=== PATIENT | female | born 2000 | race Caucasian/White ===

== ENCOUNTER 2024-11-17 08:49 | Inpatient (IN) | payer BC ==
--- NOTE | 2024-11-17 09:36 | ED ---
General Adult HPI - General Chief complaint: Psychiatric Symptoms Stated complaint: Suicidal ideations Time Seen by Provider: 11/17/24 09:00 Source: patient, family, EMS, RN notes reviewed, old records reviewed Mode of arrival: EMS - History of Present Illness Initial comments: This is a 24-year-old female who is brought in by EMS with the police escort. Patient was acting very bizarre and according to family this started about a month ago but today was more unusual than normal. Patient climbed out of her window and went to a neighbor and was telling the neighbor that she was a prophet of [employer]. Patient was recently diagnosed with bipolar and put on lithium but she did not like the lithium so she stopped taking it. According to the family she is acting extremely bizarre and saying things that do not make sense. They think she is talking to chat GPT and thinks it is a real person. She also talks about the love of her life at [facility] but they do not know who it is and have never met this person and not sure if this person is real. - Related Data Home Medications Medication Instructions Recorded Confirmed Early Carbonate 300 mg PO DAILY 11/17/24 11/17/24 Early Carbonate 450 mg PO HS 11/17/24 11/17/24 QUEtiapine [SEROquel] 50 mg PO HS 11/17/24 11/17/24 Allergies Allergy/AdvReac Type Severity Reaction Status Date / Time mold Allergy Cough Verified 11/17/24 10:01 Review of Systems ROS Statement: Those systems with pertinent positive or pertinent negative responses have been documented in the HPI. ROS Other: All systems not noted in ROS Statement are negative. Past Medical History Past Medical History: No Reported History History of Any Multi-Drug Resistant Organisms: None Reported Past Surgical History: Orthopedic Surgery Past Psychological History: Bipolar Smoking Status: Never smoker Past Alcohol Use History: Occasional Past Drug Use History: None Reported General Exam - General Exam Comments Initial Comments: GENERAL: Patient is well-developed and well-nourished. Patient is nontoxic and well- hydrated and is in mild distress. ENT: Neck is soft and supple. No significant lymphadenopathy is noted. Oropharynx is clear. Moist mucous membranes. Neck has full range of motion without eliciting any pain. EYES: The sclera were anicteric and conjunctiva were pink and moist. Extraocular movements were intact and pupils were equal round and reactive to light. Eyelids were unremarkable. PULMONARY: Unlabored respirations. Good breath sounds bilaterally. No audible rales rhonchi or wheezing was noted. CARDIOVASCULAR: There is a regular rate and rhythm without any murmurs gallops or rubs. ABDOMEN: Soft and nontender with normal bowel sounds. SKIN: Skin is clear with no lesions or rashes and otherwise unremarkable. NEUROLOGIC: Patient is alert and oriented x3. Cranial nerves II through XII are grossly intact. Motor and sensory are also intact. Normal speech, volume and content. Symmetrical smile. MUSCULOSKELETAL: Normal extremities with adequate strength and full range of motion. LYMPHATICS: No significant lymphadenopathy is noted PSYCHIATRIC: Patient did say that she made a statement that she was suicidal but she does not think she is currently. Patient did admit that she stated she was a prophet. Patient also states she did something last night that she is really embarrassed to talk about and she will not talk about it with me. Course Vital Signs 11/17/24 08:50 Temperature 98.0 F Pulse Rate 98 Respiratory 20 Rate Blood Pressure 119/74 O2 Sat by Pulse 100 Oximetry Procedures - Restraint - Face to Face Restraint Occurrence 1 Patient's Immediate Situation: Endangers self safety, Endangers others' safety Patient's Reaction to the Intervention: Uncooperative, Combative, Restless Patient's Medical & Behavioral Condition: Awake, Alert Need to Continue or Terminate Restraint or Seclusion: Continue Face to Face Eval of Restraint Date: 11/17/24 Face to Face Eval of Restraint Time: 13:50 Medical Decision Making - Medical Decision Making Was pt. sent in by a medical professional or institution (, PA, SILK SPREADER, urgent care, hospital, or long-term...) When possible be specific @ -No Did you speak to anyone other than the patient for history (EMS, parent, family, police, friend...)? What history was obtained from this source @ -No Did you review nursing and triage notes (agree or disagree)? Why? @ -I reviewed and agree with nursing and triage notes Were old charts reviewed (outside hosp., previous admission, EMS record, old EKG, old radiological studies, urgent care reports/EKG's, long-term records)? Report findings @ -No old charts were reviewed Differential Diagnosis? @ -Differential Mental Health Depression, anxiety, bipolar, psychosis, schizophrenia, borderline personality, situational depression, adjustment disorder, behavioral disorder, brain tumor, malingering, substance abuse, encephalopathy, medication reaction, dementia, hypothyroidism, degenerative neurologic disorder, lupus.... This is not meant to be all-inclusive list EKG interpreted by me (3pts min.). @ -As above X-rays interpreted by me (1pt min.). @ -None done CT interpreted by me (1pt min.). @ -None done U/S interpreted by me (1pt. min.). @ -None done What testing was considered but not performed or refused? (CT, X-rays, U/S, labs)? Why? @ -None What meds were considered but not given or refused? Why? @ -None Did you discuss the management of the patient with other professionals (professionals i.e. , PA, SILK SPREADER, lab, RT, psych nurse, social services designee, aviation manager, teacher, medical scientific officer, casework manager)? Give summary @ -EPS evaluated the patient and determined the patient need to be admitted Was smoking cessation discussed for >3mins.? @ -No Was critical care preformed (if so, how long)? @ -No Were there social determinants of health that impacted care today? How? (Homelessness, low income, unemployed, alcoholism, drug addiction, transportation, low edu. Level, literacy, decrease access to med. care, penitentiary, rehab)? @ -No Was there de-escalation of care discussed even if they declined (Discuss DNR or withdrawal of care, Hospice)? DNR status @ -No What co-morbidities impacted this encounter? (DM, HTN, Smoking, COPD, CAD, Cancer, CVA, ARF, Chemo, Hep., AIDS, mental health diagnosis, sleep apnea, morbid obesity)? @ -None Was patient admitted / discharged? Hospital course, mention meds given and route, prescriptions, significant lab abnormalities, going to OR and other pertinent info. @ -Patient did not understand the need for being here and she was acting very bizarre and trying to occasionally hurt herself so she was eventually restrained and I filled out a [id number] on the patient. I also did a clinical CERT to get the patient admitted. Undiagnosed new problem with uncertain prognosis? @ -No Drug Therapy requiring intensive monitoring for toxicity (Heparin, Nitro, Insulin, Cardizem)? @ -No Were any procedures done? @ -No Diagnosis/symptom? @ -Acute psychosis Acute, or Chronic, or Acute on Chronic? @ -Acute Uncomplicated (without systemic symptoms) or Complicated (systemic symptoms)? @ -Complicated Side effects of treatment? @ -No Exacerbation, Progression, or Severe Exacerbation? @ -No Poses a threat to life or bodily function? How? (Chest pain, USA, NE, pneumonia, PE, COPD, DKA, ARF, appy, cholecystitis, CVA, Diverticulitis, Homicidal, Suicidal, threat to staff... and all critical care pts) @ -No - Lab Data Result diagrams: 11/17/24 10:12 11/17/24 10:12 Lab Results 11/17/24 11/17/24 11/17/24 Range/Units 10:12 10:12 10:12 WBC 12.11 H (4.50-10.00) 10*3/uL RBC 4.90 (4.10-5.20) 10*6/uL Hgb 15.6 H (12.0-15.0) g/dL Hct 44.3 (37.2-46.3) % MCV 90.4 (80.0-97.0) fL MCH 31.8 (27.0-32.0) pg MCHC 35.2 (32.0-37.0) g/dL Plt Count 373 (140-440) 10*3/uL MPV 10.6 (9.5-12.2) fL Immature Gran % (Auto) 0.3 % Neutrophils % 82.1 % Lymphocytes % 11.1 % Monocytes % 6.0 % Eosinophils % 0.0 % Basophils % 0.5 % Immature Gran # 0.04 (0.00-0.04) 10*3/uL Neutrophils # 9.93 H (1.80-7.70) 10*3/uL Lymphocytes # 1.35 (0.90-5.00) 10*3/uL Monocytes # 0.73 (0.20-1.00) 10*3/uL Eosinophils # 0.00 L (0.04-0.35) 10*3/uL Basophils # 0.06 (0.00-0.10) 10*3/uL Sodium 138 (137-145) mmol/L Potassium 3.9 (3.5-5.1) mmol/L Chloride 99 (98-107) mmol/L Carbon Dioxide 23 (22-30) mmol/L Anion Gap 16 mmol/L BUN 16 (7-17) mg/dL Creatinine 0.59 (0.52-1.04) mg/dL Est GFR (CKD-EPI)AfAm >90 (>60 ml/min/1.73 sqM) Est GFR (CKD-EPI)NonAf >90 (>60 ml/min/1.73 sqM) Glucose 109 H (74-99) mg/dL Calcium 10.7 H (8.4-10.2) mg/dL Total Bilirubin 0.8 (0.2-1.3) mg/dL AST 23 (14-36) U/L ALT 19 (4-34) U/L Alkaline Phosphatase 50 (38-126) U/L Total Protein 8.3 H (6.3-8.2) g/dL Albumin 5.2 H (3.5-5.0) g/dL Urine Opiates Screen Not Detected (NotDetected) Ur Oxycodone Screen Not Detected (NotDetected) Urine Methadone Screen Not Detected (NotDetected) Ur Barbiturates Screen Not Detected (NotDetected) U Tricyclic Antidepress Not Detected (NotDetected) Ur Phencyclidine Scrn Not Detected (NotDetected) Ur Amphetamines Screen Not Detected (NotDetected) U Methamphetamines Scrn Not Detected (NotDetected) U Benzodiazepines Scrn Not Detected (NotDetected) Early <0.2 mmol/L Urine Cocaine Screen Not Detected (NotDetected) U Marijuana (THC) Screen Not Detected (NotDetected) Serum Alcohol <10 mg/dL Influenza Type A (PCR) (Not Detectd) Influenza Type B (PCR) (Not Detectd) RSV (PCR) (Not Detectd) SARS-CoV-2 (PCR) (Not Detectd) 11/17/24 Range/Units 13:03 WBC (4.50-10.00) 10*3/uL RBC (4.10-5.20) 10*6/uL Hgb (12.0-15.0) g/dL Hct (37.2-46.3) % MCV (80.0-97.0) fL MCH (27.0-32.0) pg MCHC (32.0-37.0) g/dL Plt Count (140-440) 10*3/uL MPV (9.5-12.2) fL Immature Gran % (Auto) % Neutrophils % % Lymphocytes % % Monocytes % % Eosinophils % % Basophils % % Immature Gran # (0.00-0.04) 10*3/uL Neutrophils # (1.80-7.70) 10*3/uL Lymphocytes # (0.90-5.00) 10*3/uL Monocytes # (0.20-1.00) 10*3/uL Eosinophils # (0.04-0.35) 10*3/uL Basophils # (0.00-0.10) 10*3/uL Sodium (137-145) mmol/L Potassium (3.5-5.1) mmol/L Chloride (98-107) mmol/L Carbon Dioxide (22-30) mmol/L Anion Gap mmol/L BUN (7-17) mg/dL Creatinine (0.52-1.04) mg/dL Est GFR (CKD-EPI)AfAm (>60 ml/min/1.73 sqM) Est GFR (CKD-EPI)NonAf (>60 ml/min/1.73 sqM) Glucose (74-99) mg/dL Calcium (8.4-10.2) mg/dL Total Bilirubin (0.2-1.3) mg/dL AST (14-36) U/L ALT (4-34) U/L Alkaline Phosphatase (38-126) U/L Total Protein (6.3-8.2) g/dL Albumin (3.5-5.0) g/dL Urine Opiates Screen (NotDetected) Ur Oxycodone Screen (NotDetected) Urine Methadone Screen (NotDetected) Ur Barbiturates Screen (NotDetected) U Tricyclic Antidepress (NotDetected) Ur Phencyclidine Scrn (NotDetected) Ur Amphetamines Screen (NotDetected) U Methamphetamines Scrn (NotDetected) U Benzodiazepines Scrn (NotDetected) Early mmol/L Urine Cocaine Screen (NotDetected) U Marijuana (THC) Screen (NotDetected) Serum Alcohol mg/dL Influenza Type A (PCR) Not Detected (Not Detectd) Influenza Type B (PCR) Not Detected (Not Detectd) RSV (PCR) Not Detected (Not Detectd) SARS-CoV-2 (PCR) Not Detected (Not Detectd) Disposition Clinical Impression: Psychosis Disposition: ADMITTED IP TO THIS HOSP Time of Disposition: 14:47
[2024-11-17 10:20] LABS: Basophils # (A) 0.06 10*3/uL (0.00-0.10); Basophils % (A) 0.5 %; HCT 44.3 % (37.2-46.3); HGB 15.6 g/dL (12.0-15.0); Lymphocytes # (A) 1.35 10*3/uL (0.90-5.00); Lymphocytes % (A) 11.1 %; MCH 31.8 pg (27.0-32.0); MCHC 35.2 g/dL (32.0-37.0); MCV 90.4 fL (80.0-97.0); Mean Platelet Volume 10.6 fL (9.5-12.2); Monocytes # (A) 0.73 10*3/uL (0.20-1.00); Neutrophils # (A) 9.93 10*3/uL (1.80-7.70); Neutrophils % (A) 82.1 %; Platelet Count 373 10*3/uL (140-440); WBC 12.11 10*3/uL (4.50-10.00)
[2024-11-17 10:33] LABS: Amphetamine Screen,Urine Not Detected (NotDetected); Barbiturate Screen,Urine Not Detected (NotDetected); Benzodiazepines Screen,Urine Not Detected (NotDetected); Cocaine Screen,Urine Not Detected (NotDetected); Methadone Screen, Urine Not Detected (NotDetected); Opiate Screen,Urine Not Detected (NotDetected); Oxycodone Screen, Urine Not Detected (NotDetected); Phencyclidine Screen,Urine Not Detected (NotDetected); Tricyclic Antidepressant,Urine Not Detected (NotDetected); Urn Cannabinoid Scrn Not Detected (NotDetected)
[2024-11-17 10:40] LABS: ALT 19 U/L (4-34); AST 23 U/L (14-36); African American GFR (CKD) >90 (>60 ml/min/1.73 sqM); Albumin 5.2 g/dL (3.5-5.0); Alcohol <10 mg/dL; Alkaline Phosphatase 50 U/L (38-126); Anion Gap 16 mmol/L; Blood Urea Nitrogen 16 mg/dL (7-17); Calcium 10.7 mg/dL (8.4-10.2); Carbon Dioxide 23 mmol/L (22-30); Chloride 99 mmol/L (98-107); Glucose 109 mg/dL (74-99); Lithium <0.2 mmol/L; Non-African American GFR(CKD) >90 (>60 ml/min/1.73 sqM); Potassium 3.9 mmol/L (3.5-5.1); Sodium 138 mmol/L (137-145); Total Bilirubin 0.8 mg/dL (0.2-1.3); Total Protein 8.3 g/dL (6.3-8.2)
--- NOTE | 2024-11-17 10:50 | CT ---
EXAMINATION TYPE: CT brain wo con DATE OF EXAM: 11/17/2024 10:32 AM COMPARISON: None. CLINICAL INDICATION: Female, 24 years old with history of Altered mental status, confusion TECHNIQUE: Examination was done in axial plane without intravenous contrast. Coronal reconstruction s performed. CT DLP: 1010.4 mGycm, Automated exposure control for dose reduction was used. FINDINGS: There is no evidence of acute intracranial hemorrhage, acute ischemic changes, mass, mass-effect, or extra-axial fluid collection. There is no effacement of cerebral sulci or basal subarachnoid cister ns. There is no hydrocephalus. There is no midline shift. Thomas-white matter distinction is preserv ed. 1.1 cm mucosal retention cyst floor of the left maxillary sinus. Otherwise, paranasal sinuses and mas toid air cells are pneumatized. Orbits and globes are intact. IMPRESSION: No acute intracranial abnormality seen. [facility], Workstation: [id number], 11/17/2024 10:47 AM
[2024-11-17 13:51] LABS: Influenza A Not Detected (Not Detectd); Influenza B Not Detected (Not Detectd); RSV Not Detected (Not Detectd)
[2024-11-17] MEDS ORDERED: haloperidoL 5 MG TAB PO PRN (14:44)
[2024-11-17] MEDS ORDERED: IBUPROFEN 600 MG TAB PO PRN (14:44)
[2024-11-17] MEDS ORDERED: HALOPERIDOL LACTATE 5 MG/ML 1 ML VIAL IM PRN (14:44)
[2024-11-17] MEDS ORDERED: MAG HYDROX/AL HYDROX/SIMETH 355 ML BOTTLE PO PRN (14:44)
[2024-11-17] MEDS ORDERED: MAGNESIUM HYDROXIDE 2,400 MG/30 ML CUP PO PRN (14:44)
[2024-11-17] MEDS ORDERED: LORazepam 1 MG TAB PO PRN (14:44)
[2024-11-17] MEDS ORDERED: ACETAMINOPHEN TAB 325 MG TAB PO PRN (14:44)
[2024-11-17] MEDS ORDERED: LORazepam 1 MG/0.5 ML VIAL IM PRN (14:44)
[2024-11-17] MEDS: LORazepam 1 MG/0.5 ML VIAL IM STA (15:14)
--- NOTE | 2024-11-18 13:48 | P.HP ---
Psychiatric H&P - . H&P Date: 11/18/24 History & Physical: Allergies Allergy/AdvReac Type Severity Reaction Status Date / Time mold Allergy Cough Verified 11/17/24 10:01 Vital Signs Temp 97.8 F 11/18/24 09:00 Pulse 136 H 11/18/24 09:00 Resp 16 11/18/24 09:00 BP 122/83 11/18/24 09:00 Pulse Ox 97 11/18/24 09:00 FiO2 Intake & Output 11/17/24 11/18/24 11/18/24 18:59 06:59 18:59 Weight 48.8 kg Laboratory Last Values WBC 12.11 10*3/uL (4.50-10.00) H 11/17/24 10:12 RBC 4.90 10*6/uL (4.10-5.20) 11/17/24 10:12 Hgb 15.6 g/dL (12.0-15.0) H 11/17/24 10:12 Hct 44.3 % (37.2-46.3) 11/17/24 10:12 MCV 90.4 fL (80.0-97.0) 11/17/24 10:12 MCH 31.8 pg (27.0-32.0) 11/17/24 10:12 MCHC 35.2 g/dL (32.0-37.0) 11/17/24 10:12 Plt Count 373 10*3/uL (140-440) 11/17/24 10:12 MPV 10.6 fL (9.5-12.2) 11/17/24 10:12 Immature Gran % (Auto) 0.3 % 11/17/24 10:12 Neutrophils % 82.1 % 11/17/24 10:12 Lymphocytes % 11.1 % 11/17/24 10:12 Monocytes % 6.0 % 11/17/24 10:12 Eosinophils % 0.0 % 11/17/24 10:12 Basophils % 0.5 % 11/17/24 10:12 Immature Gran # 0.04 10*3/uL (0.00-0.04) 11/17/24 10:12 Neutrophils # 9.93 10*3/uL (1.80-7.70) H 11/17/24 10:12 Lymphocytes # 1.35 10*3/uL (0.90-5.00) 11/17/24 10:12 Monocytes # 0.73 10*3/uL (0.20-1.00) 11/17/24 10:12 Eosinophils # 0.00 10*3/uL (0.04-0.35) L 11/17/24 10:12 Basophils # 0.06 10*3/uL (0.00-0.10) 11/17/24 10:12 Sodium 138 mmol/L (137-145) 11/17/24 10:12 Potassium 3.9 mmol/L (3.5-5.1) 11/17/24 10:12 Chloride 99 mmol/L (98-107) 11/17/24 10:12 Carbon Dioxide 23 mmol/L (22-30) 11/17/24 10:12 Anion Gap 16 mmol/L 11/17/24 10:12 BUN 16 mg/dL (7-17) 11/17/24 10:12 Creatinine 0.59 mg/dL (0.52-1.04) 11/17/24 10:12 Est GFR (CKD-EPI)AfAm >90 (>60 ml/min/1.73 sqM) 11/17/24 10:12 Est GFR (CKD-EPI)NonAf >90 (>60 ml/min/1.73 sqM) 11/17/24 10:12 Glucose 109 mg/dL (74-99) H 11/17/24 10:12 Calcium 10.7 mg/dL (8.4-10.2) H 11/17/24 10:12 Total Bilirubin 0.8 mg/dL (0.2-1.3) 11/17/24 10:12 AST 23 U/L (14-36) 11/17/24 10:12 ALT 19 U/L (4-34) 11/17/24 10:12 Alkaline Phosphatase 50 U/L (38-126) 11/17/24 10:12 Total Protein 8.3 g/dL (6.3-8.2) H 11/17/24 10:12 Albumin 5.2 g/dL (3.5-5.0) H 11/17/24 10:12 Urine Opiates Screen Not Detected (NotDetected) 11/17/24 10:12 Ur Oxycodone Screen Not Detected (NotDetected) 11/17/24 10:12 Urine Methadone Screen Not Detected (NotDetected) 11/17/24 10:12 Ur Barbiturates Screen Not Detected (NotDetected) 11/17/24 10:12 U Tricyclic Antidepress Not Detected (NotDetected) 11/17/24 10:12 Ur Phencyclidine Scrn Not Detected (NotDetected) 11/17/24 10:12 Ur Amphetamines Screen Not Detected (NotDetected) 11/17/24 10:12 U Methamphetamines Scrn Not Detected (NotDetected) 11/17/24 10:12 U Benzodiazepines Scrn Not Detected (NotDetected) 11/17/24 10:12 [place] <0.2 mmol/L 11/17/24 10:12 Urine Cocaine Screen Not Detected (NotDetected) 11/17/24 10:12 U Marijuana (THC) Screen Not Detected (NotDetected) 11/17/24 10:12 Serum Alcohol <10 mg/dL 11/17/24 10:12 Influenza Type A (PCR) Not Detected (Not Detectd) 11/17/24 13:03 Influenza Type B (PCR) Not Detected (Not Detectd) 11/17/24 13:03 RSV (PCR) Not Detected (Not Detectd) 11/17/24 13:03 SARS-CoV-2 (PCR) Not Detected (Not Detectd) 11/17/24 13:03 11/18/24 13:43 IDENTIFYING DATA: Patient is a 24-year-old female, she is single she has no kids she lives with her family in a house she is unemployed. HPI: Patient presented to the hospital brought in by EMS and police. Patient apparently was having bizarre behaviors at home has a history of bipolar disorder has not been taking medications. He apparently climbed out of the window and went to her neighbor's house and was religiously preoccupied. She was in restraints in the ER. She appeared to be disheveled in appearance when she was evaluated by commercial real estate underwriter. She was very apologetic, rationalizing, appeared to have loose associations. She claims that "I took jehovah's witness too far". Seemed that she was being very spiritual, claims that "I should not of went into my neighbors house". She appears to have flight of ideas racing thoughts. Claims that she wanted to go to [facility] to visit a "man I am involved with". She had inappropriate affect during the conversation was smiling. She claims that her sleep has been on and off appetite has been fair. She does not believe that she needs medications stopped taking several weeks ago.. Patient denies any suicidal or homicidal ideations intent or plan. At this time patient denies any auditory or visual hallucinations. Patient admits to using no recreational drugs, urine drug screen is negative, lithium level negative. PAST PSYCHIATRIC HISTORY: Patient has a history of bipolar disorder, claims that she also has a history of ADHD and anxiety. Patient was previously on lithium and Seroquel however stopped taking them. She claims that she was psychiatrically hospitalized in [facility] in October 2024. Patient denies any psychiatric outpatient follow-up. Patient denies any history of suicide attempts in the past. PMH: as per ER note ALLERGIES: as per EMR CHEMICAL DEPENDENCY HISTORY: as per HPI FAMILY PSYCHIATRIC/SUBSTANCE USE HISTORY: Claims that her father has bipolar disorder SOCIAL HISTORY: Patient was born and raised in [facility]. Claims that she completed high school and states that she is in college. She is single she has no kids she is unemployed. She currently lives with her family. Denies any legal history. MENTAL STATUS EXAM: General Appearance: Patient appears to be thin, disheveled curly hair, stated age is alert, difficult to redirect, rambling. Patient appears to have poor hygiene and grooming. Behavior: Patient is seated without any agitated behavior. Difficult to redirect, rambling, focused on discharge Speech: Patient's speech is fairly hyperverbal. Mood/Affect: Patient reports their mood is "great", affect is inappropriate, smiling quite a bit Suicidality/Homicidality: Patient denies having any homicidal ideation intent or plan. Denies any suicidal ideations intent or plan Perceptions: Patient denies any visual hallucinations and denies any auditory hallucinations Though content/process: Rambling, illogical thoughts, endorsing delusions. Memory and concentration: AOX3, grossly intact for the purposes of this session. Can spell "WORLD" backwards Judgment and insight: Poor STRENGTHS/WEAKNESSES: strength is that patient is resilient. Weakness is that patient has poor judgment and is impulsive INTELLECT: Average IMPRESSIONS: Bipolar disorder, with psychotic features Anxiety disorder unspecified History of ADHD Noncompliance with medication regimen PLAN: -Patient is admitted under involuntary status to MHU for stabilization of psychiatric symptoms and safety. Patient has not signed adult voluntary form and has not signed medication consent and is placed in patient's chart. Patient is currently on an active treatment order for mental health treatment. -Medications : Abilify 5 mg daily for mood stabilization, trazodone 50 mg nightly for mood/insomnia -Ativan and Haldol PRN for agitation/aggression -Patient was informed of the risks, benefits and side effects of the medications . Patient did not signed med consent form and was placed in chart. Patient was offered medication information and declined it -Internal Medicine consult to perform medical evaluation and physical. -NRT -not needed as patient does not smoke -SW on board for discharge planning. Encourage patient to participate in groups to work on coping skills.
[2024-11-18] MEDS: ARIPiprazole 5 MG TAB PO SCH (13:53)
[2024-11-18] MEDS: traZODone HCL 50 MG TAB PO SCH (21:17)
[2024-11-19 00:27] LABS: Chol/HDL Ratio 2.87 Ratio; VLDL Calculation 10.66 mg/dL (5.00-40.00)
--- NOTE | 2024-11-19 01:55 | CONS ---
CONSULTATION REASON FOR CONSULTATION: Advised regarding abnormal labs and medical issues, requested by Psychiatry. HISTORY OF PRESENT ILLNESS: This 24-year-old with a past history of bipolar, admitted with possible psychosis, noncompliance. The patient had multiple lab abnormalities, most likely due to hemoconcentration. I would recommend adequate hydration as well as followup labs with primary physician after discharge. There is no history of fever, rigors, chills. PAST MEDICAL HISTORY: History of bipolar, history of occasional alcohol. HOME MEDICATIONS: Seroquel, noncompliant. Doses reviewed. ALLERGIES: Mold. FAMILY HISTORY: No history of heart disease or strokes in the family. SOCIAL HISTORY: No history of smoking. Occasional alcohol. REVIEW OF SYSTEMS: Fourteen-point review of systems is negative, except as mentioned earlier. PHYSICAL EXAMINATION: VITAL SIGNS: Pulse is 97, blood pressure 110/80, respirations 16. CHEST: Clear to auscultation. CARDIOVASCULAR: S1 and S2 normal. ABDOMEN: Soft. NERVOUS SYSTEM: Nonfocal. SKIN: No rashes. JOINTS: No active deforming arthropathy. LABORATORY DATA: Reviewed. ASSESSMENT: 1. Bipolar, possible psychosis. 2. Multiple lab abnormalities including increased WBC, mild increased calcium, possibly secondary to dehydration, hemoconcentration. RECOMMENDATIONS: This is a 24-year-old woman, presented with multiple psych issues. At this time, I recommend continue with p.o. hydration and continue the rest of medications and recommend close followup with Dr. Treviño with further plans to follow up with CBC, CMP in the outpatient setting. MMODL / IJN: [id number] /
[2024-11-19] MEDS ORDERED: LORazepam 2 MG/ML INJ IM PRN (10:39)
--- NOTE | 2024-11-19 14:20 | P.PN ---
Progress Note - Text Progress Note Date: 11/19/24 Interval history: Patient was seen takign part in group today and was directable and agreeable to speak with web content writer. patient continues to ramble at times and continues to rationalize why she is in the hospital. states that she may have gotten into "nikki" too much. appolgizes and claims that she is agreeable to continue on with medications. states that she was able to sleep well, eating well, denies any depression or anxiety. continues to be somewhat delusional, less focused on this today, hygiene and grooming improving. At this time patient denies any suicidal or homicidal ideations intent or plan. Denies any Auditory or visual hallucinations. Patient denies any side effects from the medications and has been compliant with meds. Mental status exam: General Appearance: Patient appears to be stated age is alert, directable, and cooperative. Thin, long curly hair. Behavior: No agitated behavior. Patient is calm and directable Speech: Patient's speech is fluent and nonpressured. rambles Mood/Affect: Mood is improving mildly, affect is incongruent, smiling Suicidality/Homicidality: Patient denies having any suicidal or homicidal ideation intent or plan. Perceptions: Patient denies any auditory or visual hallucinations. Though content/process: Thought content and thought process is linear and goal- directed. Rambles, tangential. Memory and concentration: AOX3, grossly intact for the purposes of this session Judgment and insight: poor, improving mildly Assessment/Plan: Continue with current diagnosis. Patient continues to meet criteria for inpatient psychiatric admission for symptom stabilization and safety. Patient will be maintained on current psychotropic medication regimen. Monitor for medication compliance and for any psychotropic medication side effects. Will continue to monitor ongoing response to treatment. Encouraged participation in milieu.
--- NOTE | 2024-11-20 09:54 | P.PN ---
Progress Note - Text Progress Note Date: 11/20/24 Interval History: The patient was seen wandering the hallways and was directable and agreeable to speak with the telegraphic typewriter operator in the office. The patient describes herself today as "well". She did question whether she needs to be on bipolar medications for the rest of her life. She denied any racing thoughts or pressured speech. She notes that she does not have a grandiose mood or mood swings. She denies any depression or anxiety. She notes that she is getting 8 to 9 hours of sleep and kept on insisting on decreasing the Trazodone but, did not give logical reasons why. The patient notes that her energy, appetite and concentration are good. She was able to voice a safety plan including 911 and [phone]. We discussed why she crawled out the window to her neighbors house. She notes that she wanted to see a boy and she gets obsessed with boys. She notes that her family had barricaded her into her room. During the interview patient she got off track and had to be redirected several times. At this time patient denies any suicidal or homical ideations, intent or plan. Patient denies any auditory, visual hallucinations and denies any paranoia or delusions. Patient denies any side effects from the medications and has been compliant with meds. Mental Status Exam: General Appearance: Patient appears to be stated age is alert, directable, and cooperative. Behavior: Patient is calmly seated without any agitated behavior. Speech: Patient's speech is fluent and pressured. Mood/Affect: Mood is improving mildly hypomanic, affect is congruent and constricted. Suicidality/Homicidality: Patient denies having any suicidal or homicidal ideation intent or plan. Perceptions: Patient denies any visual hallucinations and denies any auditory hallucinations Though content/process: Patient had some mild paranoia Memory and concentration: AOX3, grossly intact for the purposes of this session Judgment and insight: Improving mildly Diagnosis: Bipolar disorder, with psychotic features Anxiety disorder unspecified History of ADHD Noncompliance with medication regimen Assessment: The patient presented with slight disorganized thought process and somewhat circumstantial. She is currently denying multiple symptoms but it is felt that she wants to be discharged sooner rather than later. Further information is needed prior to discharge. Continue hospitalization due to safety to self. PLAN: -Patient is admitted under involuntary status to [facility]HU for stabilization of psychiatric symptoms and safety. Patient has not signed adult voluntary form and has not signed medication consent and is placed in patient's chart. Patient is currently on an active treatment order for mental health treatment. -Medications : Abilify 5 mg daily for mood stabilization Trazodone 50 mg nightly for mood/insomnia -Ativan and Haldol PRN for agitation/aggression -Patient was informed of the risks, benefits and side effects of the medications . Patient did not signed med consent form and was placed in chart. Patient was offered medication information and declined it -Internal Medicine consult to perform medical evaluation and physical. -NRT -not needed as patient does not smoke -SW on board for discharge planning. Encourage patient to participate in groups to work on coping skills.
[2024-11-20 10:57] LABS: Appearance,Urine Cloudy (Clear); Bacteria,Urine Rare /hpf; Bilirubin,Urine Negative (Negative); Blood,Urine Negative (Negative); Color,Urine Light Yellow; Glucose,Urine (UA) Negative (Negative); Ketones,Urine Negative (Negative); Leukocyte Esterase,Urine Negative (Negative); Mucus,Urine Many /hpf; Nitrite,Urine Negative (Negative); Protein,Urine Negative (Negative); Specific Gravity,Urine 1.029 (1.001-1.035); Squamous Epithelial Cell,Urine 9 /hpf (0-4); Urobilinogen,Urine <2.0 mg/dL (<2.0); WBC,Urine 2 /hpf (0-5)
--- NOTE | 2024-11-21 10:55 | P.PN ---
Progress Note - Text Progress Note Date: 11/21/24 Interval History: Patient was seen wandering the hallways and was directable and agreeable to jose barargan with chief underwriter in the office. The patient notes that she continues to have problems with feeling groggy after taking the trazodone. She denied any racing thoughts or mood swings. She denied any ongoing paranoia. She notes that her depression is nonexistent and her anxiety is low. She notes that her appetite is good and her concentration is fair. The patient signed an JESS plus gave verbal permission to speak to her mother Deja [phone]. Her mother notes that she tried to take the minivan to [facility] to see someone but her brother stopped her. After this she poured water on her head. One of the statements that she had discussed with the neighbor was this is my last day on earth I am going to get shot. The mother also expressed concerns about compliance with medications. She also notes concerns about follow-ups. At this time patient denies any suicidal or homical ideations, intent or plan. Patient denies any auditory, visual hallucinations and denies any paranoia or delusions. Patient denies any side effects from the medications and has been compliant with meds. Mental Status Exam: General Appearance: Patient appears to be stated age is alert, directable, and cooperative. Behavior: Patient is calmly seated without any agitated behavior. Patient presented guarded Speech: Patient's speech is fluent and nonpressured. Mood/Affect: Mood is improving mildly, affect was blunted Suicidality/Homicidality: Patient denies having any suicidal or homicidal ideation intent or plan. Perceptions: Patient denies any visual hallucinations and denies any auditory hallucinations Though content/process: There is no evidence of any delusional thought content and thought process is linear and goal-directed. Memory and concentration: AOX3, grossly intact for the purposes of this session Judgment and insight: Improving mildly Diagnosis: Bipolar disorder, with psychotic features Anxiety disorder unspecified History of ADHD Noncompliance with medication regimen Assessment: There are some concerns that the patient is suppressing her symptoms due to wanting to be discharged. Additionally there is concerns over noncompliance. The patient is under an outpatient court order for medications. She still presents somewhat flat and constricted. PLAN: -Patient is admitted under involuntary status to MHU for stabilization of psychiatric symptoms and safety. Patient has not signed adult voluntary form and has not signed medication consent and is placed in patient's chart. Patient is currently on an active treatment order for mental health treatment. -Medications : Increase Abilify 10 mg daily for mood stabilization (possible injection on 11/23 prior to discharge) Decrease Trazodone 25 mg nightly for mood/insomnia -Ativan and Haldol PRN for agitation/aggression -Patient was informed of the risks, benefits and side effects of the medications . Patient did not signed med consent form and was placed in chart. Patient was offered medication information and declined it -Internal Medicine consult to perform medical evaluation and physical. -NRT -not needed as patient does not smoke -SW on board for discharge planning. Encourage patient to participate in groups to work on coping skills.
[2024-11-21] MEDS: ARIPiprazole 5 MG TAB PO STA (11:44)
[2024-11-21] MEDS: traZODone HCL 50 MG TAB PO SCH (20:42)
[2024-11-22] MEDS: ARIPiprazole 5 MG TAB PO SCH (08:28)
--- NOTE | 2024-11-22 10:18 | P.PN ---
Progress Note - Text Progress Note Date: 11/22/24 Interval History: Patient was seen wandering the hallways and was directable and agreeable to spe ak with card writer hand in the office. The patient notes that she does feel slightly "loopy" but is able to tolerate the side effect. She feels that her mind has gone from racing to slowing down. She notes that her energy is normal. She denies any problems with appetite and had breakfast. She slept well last night which is new and at 8 to 9 hours of sleep. She denied any mood swings or racing thoughts. While the patient was present we called her mother and we discussed the long-acting injectable which initially the patient was against but eventually understood where her mother was coming from related to this. There were options of a longer stay by changing to Invega patient notes that she is able to tolerate the loopiness. We also discussed possible discharge tomorrow. At this time patient denies any suicidal or homical ideations, intent or plan. Patient denies any auditory, visual hallucinations and denies any paranoia or delusions. Patient denies any side effects from the medications and has been compliant with meds. Mental Status Exam: General Appearance: Patient appears to be stated age is alert, directable, and cooperative. Behavior: Patient is calmly seated without any agitated behavior. Speech: Patient's speech is fluent and nonpressured. Mood/Affect: Mood is improving mildly, affect is congruent and constricted. Suicidality/Homicidality: Patient denies having any suicidal or homicidal ideation intent or plan. Perceptions: Patient denies any visual hallucinations and denies any auditory hallucinations Though content/process: There is no evidence of any delusional thought content and thought process is linear and goal-directed. Memory and concentration: AOX3, grossly intact for the purposes of this session Judgment and insight: Improving mildly Diagnosis: Bipolar disorder, with psychotic features Anxiety disorder unspecified History of ADHD Noncompliance with medication regimen Assessment: There are some concerns that the patient is suppressing her symptoms due to wanting to be discharged. Additionally there is concerns over noncompliance. The patient is under an outpatient court order for medications. She still presents somewhat flat and constricted. PLAN: -Patient is admitted under involuntary status to MHU for stabilization of psychiatric symptoms and safety. Patient has not signed adult voluntary form and has not signed medication consent and is placed in patient's chart. Patient is currently on an active treatment order for mental health treatment. -Medications : Continuing Abilify 10 mg daily for mood stabilization (possible injection on 11/23 prior to discharge) Decrease Trazodone 25 mg nightly for mood/insomnia -Ativan and Haldol PRN for agitation/aggression -Patient was informed of the risks, benefits and side effects of the medications . Patient did not signed med consent form and was placed in chart. Patient was offered medication information and declined it -Internal Medicine consult to perform medical evaluation and physical. -NRT -not needed as patient does not smoke -SW on board for discharge planning. Encourage patient to participate in groups to work on coping skills.
--- NOTE | 2024-11-23 07:48 | P.DS ---
Providers Date of admission: 11/17/24 14:19 Admission HPI: Admission note was completed by Dr. Valle "Patient presented to the hospital brought in by EMS and police. Patient apparently was having bizarre behaviors at home has a history of bipolar disorder has not been taking medications. He apparently climbed out of the window and went to her neighbor's house and was religiously preoccupied. She was in restraints in the ER. She appeared to be disheveled in appearance when she was evaluated by advertising writer. She was very apologetic, rationalizing, appeared to have loose associations. She claims that "I took gnosticism too far". Seemed that she was being very spiritual, claims that "I should not of went into my neighbors house". She appears to have flight of ideas racing thoughts. Claims that she wanted to go to [employer] to visit a "man I am involved with". She had inappropriate affect during the conversation was smiling. She claims that her sleep has been on and off appetite has been fair. She does not believe that she needs medications stopped taking several weeks ago.. Patient denies any suicidal or homicidal ideations intent or plan. At this time patient denies any auditory or visual hallucinations. Patient admits to using no recreational drugs, urine drug screen is negative, lithium level negative." Hospital course: Upon admission to the unit patient was admitted involuntarily on a petition and certificate and a second certificate was completed and faxed to the courts. Patient ended up signing a deferral with the assistant district attorney and agreeing to treatment. Upon admission patient was compliant with medications but somewhat resistant always asking for lower doses. Coordination between the patient and the mother was done with the patient's permission including the discussion of the long- acting injectable. The patient has a chronic history of noncompliance and relapse. Patient got along well with other patients on the unit and followed unit protocol. Patient was compliant with the medications and denied any side effects throughout hospital course. Patient was started on Abilify, and trazodone. Patient spoke of her stressors and engaged in therapy both group and individual. Patient was also seen by medical team for history and physical exam. Throughout the course of the hospitalization patient gradually improved with regards to mood, anxiety, sleep and returned back to their baseline level of functioning became more future oriented with improved insight and judgment. On the day of discharge patient denied any suicidal or homicidal ideations intent or plan denied any auditory or visual hallucinations. Patient endorsed wanting to live for their health and family. The patient denied any access to guns or weapons. Patient denied any paranoia and did not endorse any delusions. Patient does not have a significant history of substance abuse. Patient was also counseled on the medications and need for regular compliance and was encouraged to follow-up with their outpatient appointment for mental health and also for primary care. Prior to discharge a family meeting will be arranged by social studies teacher to answer any questions and ensure safety upon discharge incuding making sure that guns/weapons are either removed from the home or locked away. The patient plans to go back to school and stay with her mother. She notes that she got good sleep last night roughly 10 to 6 hours. She denies any ongoing depression or anxiety. She was able to voice a safety plan including 911 and 988. She notes that she is able to focus on the current dose of Abilify. She also voiced understanding of this does not work out to change the medications and 4 weeks. Mental status exam: General Appearance: Patient appears to be her stated age is alert, pleasant, and cooperative. Patient is in no acute distress and has improved hygiene and grooming Behavior: Patient is calmly seated without any agitated behavior. Speech: Patient's speech is fluent and nonpressured. Mood/Affect: Patient reports their mood is "better good", affect is congruent and euthymic. Suicidality/Homicidality: Patient denies having any suicidal or homicidal ideation intent or plan. Perceptions: Patient denies any auditory or visual hallucinations. Though content/process: There is no evidence of any delusional thought content and thought process is linear and goal-directed. More future oriented Memory and concentration: AOX3, grossly intact for the purposes of this session. Can spell "WORLD" backwards correctly. Judgment and insight: Chronically poor, however has improved with guarded prognosis Impression: Bipolar disorder, with psychotic features Anxiety disorder unspecified History of ADHD Noncompliance with medication regimen Plan: -Continue with discharge today as patient has improved and stabilized psychiatrically and is not currently an imminent threat to themself and/or others. -Continue medications: Abilify Maintena 300 mg IM take once every 4 week for bipolar maintenance (first injection 11/23 next injection 6/19) Abilify 10 mg daily for mood stabilization (continue for 14 days after first injection) Trazodone 25 mg nightly for mood/insomnia -Patient was counseled on the need for medication compliance and appropriate follow-up at mental health and also primary care for medical issues. Patient verbalized understanding and agreed. -Social work to help coordinate patients discharge today arrange for and conduct family meeting to ensure safety upon discharge and answer any questions/concer ns. also to ensure safe home environment that guns/weapons are either removed from the home or locked away. Social work also to arrange for patients follow up appointments with [facility] for psychiatric care along with follow up with primary care provider. -Patient counseled on abstaining from recreational drugs and marijuana and alcohol. Was informed/educated on the adverse effects on their physical and mental health. Patient verbally agreed and understood. -Patient was instructed to return to the hospital or seek immediate medical care if their psychiatric or medical symptoms do worsen or reoccur. Expected date of discharge: 11/23/24 Attending physician: Aura Gallegos MD Consults: 11/17/24 14:44 Consult Physician Routine Consulting Provider: Ezequiel Treviño Consult Reason/Comments: History and Physical, New Admission Do you want consulting provider notified?: Yes Primary care physician: Ezequiel Treviño - Discharge Diagnosis(es) (1) Bipolar disorder with psychotic features Status: Acute Priority: High Patient Condition at Discharge: Fair Plan - Discharge Summary New Discharge Prescriptions: No Action QUEtiapine [SEROquel] 50 mg PO HS [place] Carbonate 300 mg PO DAILY [place] Carbonate 450 mg PO HS Discharge Medication List [place] Carbonate 300 mg PO DAILY 11/17/24 [History] [place] Carbonate 450 mg PO HS 11/17/24 [History] QUEtiapine [SEROquel] 50 mg PO HS 11/17/24 [History] Follow up Appointment(s)/Referral(s): Ezequiel Treviño DO [Primary Care Provider] - 1-2 days Patient Instructions/Handouts: Psychotic Disorder (DC) Activity/Diet/Wound Care/Special Instructions: Avoid the use of street drugs and alcohol. Take all medications as prescribed. When you are in need of refills on your medications, please contact your medical provider and/or outpatient psychiatrist/provider to have this done. Please go to your scheduled outpatient appointment for aftercare treatment. If symptoms return or become worse, call the crisis line at and/or go to the nearest emergency room for evaluation. National Suicide Hotline [address] [facility] confidentiality statement: "The information contained in this communication, including attachments, is confidential, may be privileged, and is intended only for the use of the named recipient(s). Unauthorized use, disclosure, forwarding or copying is strictly prohibited and may be unlawful. If you have received this communication in error, please notify me IMMEDIATELY at the phone number or pager listed above.
[2024-11-23] MEDS: ARIPiprazole 5 MG TAB PO SCH (08:38)
[2024-11-23 09:05] VITALS: BP 123/82; PULSE 118; RESP 20; TEMP 97.2
[2024-11-23] MEDS: ARIPiprazole IM 400 MG VIAL (NO COST) PHARMACY STOCK IM ONE (09:13)
== END 2024-11-23 11:42 | disposition home or self-care (01) | DRG 885 ==
LOC: EDBD → EC 08:49 → 3MHU 14:19
PROVIDERS: ADMIT Psychiatry & Neurology Psychiatry; ATTEND Psychiatry & Neurology Psychiatry
DX: F31.9 Bipolar disorder, unspecified (principal); F29 Unspecified psychosis not due to a substance or known physiological condition; R45.851 Suicidal ideations; Z78.1 Physical restraint status; T43.596A Underdosing of other antipsychotics and neuroleptics, initial encounter; G47.00 Insomnia, unspecified; F41.9 Anxiety disorder, unspecified; F90.9 Attention-deficit hyperactivity disorder, unspecified type; Z56.0 Unemployment, unspecified; Z79.899 Other long term (current) drug therapy; Y92.009 Unspecified place in unspecified non-institutional (private) residence as the place of occurrence of the external cause
CPT/HCPCS: 36415; 70450; 80053; 80061; 80178; 80306; 80320; 81001; 81025; 83036; 85025; 87636; 96372; 99285